=== PATIENT | male | born 1945 | race Caucasian/White ===

== ENCOUNTER 2017-05-10 09:15 | Outpatient (CLI) | payer MEDICARE, OTHER ==
--- NOTE | 2017-05-10 12:33 | CT ---
CT LUMBAR SPINE WITHOUT CONTRAST: Date: 05-10-17 Comparison: None. History: Lumbar spondylosis without myelopathy. 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 Technique: Serial axial CT imaging at 2.5 mm intervals obtained from lower thoracic spine through inf erior aspect of the coccyx without contrast. Coronal and sagittal reformatted imaging obtained. FINDINGS: Concession Supervisor imaging demonstrates significant rotoscoliosis of the mid/lower thoracic spine as well as the l umbar spine. Evaluation for central canal and/or neural foraminal stenosis is limited on routine CT examination. Motion artifact limits assessment of the bilateral kidneys, which are only partially imaged. Of note, the patient underwent a lumbar spine MRI without contrast at [facility] 12-08 which demonstrated a possible mass within the right kidney. This is not fully imaged on this exam . If the patient has not had this lesion surgically resected, dedicated imaging of the abdomen with a nd without contrast using a renal mass protocol. There is no significant anterolisthesis or retrolisthesis seen within the lumbar spine. There is sign ificant dextroscoliosis of the lumbar spine. T12-L1: There is disc space narrowing and vacuum disc formation with anterior osteophyte formation an d mild bilateral facet hypertrophy. No osseous cause of significant central canal or neural foraminal stenosis. L1-2: There is left lateral osteophyte formation. There is bilateral facet hypertrophy. No osseous ca use of significant central canal or neural foraminal stenosis. L2-3: There is left lateral osteophyte formation. There is anterior osteophyte formation and bilatera l facet hypertrophy. There is mild central canal stenosis and mild bilateral neural foraminal stenosi s suspected. L3-4: There is anterior osteophyte formation and prominent bilateral facet hypertrophy with osteophyt e encroachment on the neural foramina and at least moderate bilateral neural foraminal stenosis. Mild /moderate central canal stenosis is suspected as well. L4-5: There is mild disc bulge noted. There is bilateral facet hypertrophy with associated moderate b ilateral neural foraminal stenosis, right greater than left. At least mild central canal stenosis. L5-S1: Bilateral facet hypertrophy with moderate bilateral neural foraminal stenosis suspected, left greater than right. No osseous cause of significant central canal stenosis. There appears to be a remote distal sacral/coccyxgeal fracture. In this region there is a lobulated irregular soft tissue mass lesion extending into the presacral sp herson and abutting the posterior aspect of the rectum. This lobulated soft tissue mass involves the azucena cyx in this location, and measures at least 6.4 cm in transverse dimension and 3.3 cm in AP dimension . It is highly concerning for a neoplastic process, either primary tumor or metastatic disease. No acute fracture is seen. No additional osseous lesion. IMPRESSION: 1. Lobulated soft tissue mass centered in the region of the coccyx which demonstrates significant ext ension into the presacral space and abuts the posterior aspect of the rectum. This is highly suspicio us for a neoplastic process, either primary tumor in this location or metastatic disease/myeloma. 2. Multilevel degenerative change seen within the lumbar spine. 3. Incompletely assessment of bilateral kidneys. Prior imaging demonstrated a lesion of suspicion in the region of the right kidney as described above. Recommend dedicated CT of the abdomen and pelvis w ith and without contrast using a renal mass protocol unless this lesion has been surgically resected since the 12-08-16 study. Code T POS: [facility]
--- NOTE | 2017-05-10 16:37 | NM ---
WHOLE BODY BONE SCAN 05/10/17 HISTORY: Soft tissue mass in the presacral spine noted on prior CT exam. TECHNIQUE: Following the intravenous administration of 32.0 millicuries of technetium 99m labeled MDP, anterior and posterior whole body imaging is obtained as is lateral imaging of the pelvis and lateral imaging of the calvarium. FINDINGS: There is a small focus of increased radiotracer activity involving the lateral aspect of the calvariu m on the left, a nonspecific finding. Recommend CT examination for further assessment. This could rep resent a metastatic lesion in the proper clinical setting. There are degenerative type changes in the region of bilateral AC joints. There is prominent scoliotic curvature of the thoracolumbar spine. There is physiologic activity within the kidneys and urinary bladder. Recent CT demonstrates a lobulated soft tissue mass in the region of the distal coccyx extending into the presacral space. There is no definite evidence of increased radiotracer activity in this region. IMPRESSION: 1. Nonspecific focus of increased radiotracer activity within the calvarium on the left for whic h dedicated cross-sectioning imaging via CT and/or MRI is advised. 2. The soft tissue mass concerning for neoplasia on the 05/10/[address] does not demons trate a scintigraphic correlate on this exam. The CT appearance is concerning for neoplasia. POS: [facility]
== END 2017-05-10 09:16 | disposition home or self-care (01) ==
LOC: CT 09:15
PROVIDERS: ATTEND Surgery
DX: C64.9 Malignant neoplasm of unspecified kidney, except renal pelvis (principal); M47.816 Spondylosis without myelopathy or radiculopathy, lumbar region; M53.3 Sacrococcygeal disorders, not elsewhere classified; Q76.2 Congenital spondylolisthesis
CPT/HCPCS: 72131; 78306; A9503

== ENCOUNTER 2017-05-17 09:46 | Day surgery (SDC) | payer MEDICARE, OTHER ==
[2017-05-16 13:21] VITALS: BMI 40.1
[~2017-05-17 09:46] MED LIST: Gadobenate Dimeglumine 529 MG/1 ML (20ML VIAL) ONE
[2017-05-17] MEDS ORDERED: Midazolam HCl 2 mg/2 ml Vial ONE (10:48)
[2017-05-17] MEDS ORDERED: Fentanyl 100 MCG/2 ML VIAL ONE (10:48)
--- NOTE | 2017-05-17 16:45 | MRI ---
MRI LUMBAR SPINE WITH AND WITHOUT CONTRAST: Date: 05/17/17 Multiplanar, multisequential imaging of lumbar spine obtained. Postcontrast images obtained after adm inistration of 20 mL of MultiHance IV. HISTORY: Lumbar spondylosis without myelopathy. Spondylolisthesis is also listed as a diagnosis. FINDINGS: There is a significant scoliotic curve to the lumbar spine with convexity to the right. This curvatur e is measured at 40 degrees with apex at L1-2. In the sagittal projection, lumbar vertebra maintain height and alignment. Vertebral body signal is n ormally maintained. At T12-L1, there is no disc bulge. Mild facet arthrosis. However, no significant central canal or for aminal stenosis. At L1-2, there is loss of disc space. No significant disc bulge or protrusion. Mild facet arthrosis. No significant central canal or foraminal stenosis. At L2-3, no significant disc bulge or protrusion. Moderate facet hypertrophy. Mild central canal sten osis. At L3-4, broad based disc bulge is present flattening the thecal sac. There is associated facet and l igamentous hypertrophy. These changes result in moderate to severe central canal stenosis. Bilateral foraminal stenosis is present due to the broad based disc bulge and facet hypertrophy. At L4-5, moderate disc bulge is present flattening the thecal sac. Facet hypertrophy. Moderate centra l canal stenosis. Bilateral foraminal stenosis, slightly more severe on the right. At L5-S1, no significant disc bulge. Moderate facet hypertrophy. No significant central canal or fora kayla stenosis identified. IMPRESSION: 1. Scoliotic curvature of the lumbar spine with convexity to the right measured at 40 degrees as not ed above. 2. Moderate to severe central canal stenosis at L3-4 as described above. POS: [facility]
== END 2017-05-17 14:28 | disposition home or self-care (01) ==
LOC: SDC/OP 09:46
PROVIDERS: ATTEND Surgery
DX: M47.816 Spondylosis without myelopathy or radiculopathy, lumbar region (principal); M43.16 Spondylolisthesis, lumbar region; Z88.2 Allergy status to sulfonamides
CPT/HCPCS: 36415; 72158; 82565; 93005; 93010; A9579; J2250; J3010

== ENCOUNTER 2018-05-02 08:30 | Day surgery (SDC) | payer MEDICARE, OTHER ==
[2018-05-01 16:55] VITALS: BMI 38.9
[2018-05-02] MEDS ORDERED: PROPOFOL 200 MG/20 ML VIAL ONE (15:43)
[2018-05-02] MEDS ORDERED: Lidocaine 1% PF 5 ML VIAL ONE (15:43)
--- NOTE | 2018-05-02 16:32 | MRI ---
MRI LUMBAR SPINE WITH AND WITHOUT CONTRAST: Technique: Multiplanar, multisequential imaging of the lumbar spine obtained. Post contrast images we re obtained after administrating IV MultiHance. History: Low back pain. Left side radiation. Lumbar stenosis. History of renal cancer. Comparison: 05-17-17 FINDINGS: Scoliotic curvature of the thoracolumbar spine with convexity to the right again noted measured at 35 -40 degrees, unchanged. The lumbar vertebrae maintain height and posterior alignment in the sagittal view. T12-L1: No significant disc bulge or protrusion. L1-2: No significant disc bulge or protrusion. No significant central canal or foraminal stenosis. L2-3: Mild disc bulge. Facet hypertrophy. Mild central canal stenosis. L3-4: Diffuse disc bulge. Prominent facet and ligamentous hypertrophy. Moderate to severe central can al stenosis again noted at this level. Bilateral foraminal narrowing. L4-5: Broad based bulge with a symmetric extension to the right. Facet hypertrophy. Moderate central canal stenosis. Right foraminal stenosis. L5-S1: No significant disc bulge. Mild facet hypertrophy. No significant central canal or foraminal s tenosis. There is no evidence of vertebral body edema or enhancement. No evidence of vertebral body metastasis identified. The mass density seen involving the coccyx on the CT of 05-10-17 is not imaged on this study. IMPRESSION: Scoliosis of the thoracolumbar spine. Moderate to severe canal stenosis at L3-4 again noted. Lumbar f indings have not significantly changed when compared to 05-17-17. POS: [facility]
== END 2018-05-02 15:30 | disposition home or self-care (01) ==
LOC: SDC/OP 08:30
PROVIDERS: ATTEND Surgery
DX: M48.061 Spinal stenosis, lumbar region without neurogenic claudication (principal); M51.26 Other intervertebral disc displacement, lumbar region; M41.85 Other forms of scoliosis, thoracolumbar region; Z79.82 Long term (current) use of aspirin; Z79.84 Long term (current) use of oral hypoglycemic drugs; Z79.899 Other long term (current) drug therapy; Z88.2 Allergy status to sulfonamides
CPT/HCPCS: 72158; J2001; J2704

== ENCOUNTER 2018-05-04 09:54 | Day surgery (SDC) | payer MEDICARE, OTHER ==
[2018-05-04] MEDS ORDERED: CEFAZOLIN 2 GM/50 ML BAG ONE (10:19)
[2018-05-04] MEDS ORDERED: Thrombin 5000 UNITS/5 ML VIAL ONE (11:32)
[2018-05-04] MEDS ORDERED: Bacitracin Zinc Ointment 30 gm TUBE ONE (11:32)
[2018-05-04] MEDS ORDERED: Sodium Chloride 0.9% 10 ML ONE (11:32)
[2018-05-04] MEDS ORDERED: Fentanyl 250 MCG/5 ML VIAL ONE (11:52)
[2018-05-04] MEDS ORDERED: Promethazine HCl 25 MG/ML VIAL SLOW IVP PRN (13:50)
[2018-05-04] MEDS ORDERED: Promethazine HCl 25 MG/ML VIAL IM PRN ×2 (13:50→14:37)
[2018-05-04] MEDS ORDERED: Ondansetron HCl/PF 4 MG/2 ML Vial IVP PRN (13:50)
[2018-05-04] MEDS ORDERED: Glycopyrrolate 0.2 MG/ML 5 ML SYRINGE ONE (13:52)
[2018-05-04] MEDS ORDERED: PROPOFOL 200 MG/20 ML VIAL ONE (13:52)
[2018-05-04] MEDS ORDERED: PHENYLEPHRINE-NS 100 MCG/ML 10 ML SYRINGE ONE (13:52)
[2018-05-04] MEDS ORDERED: Ondansetron PF 4 MG/2 ML Vial ONE (13:52)
[2018-05-04] MEDS ORDERED: ePHEDrine/0.9% NaCl/PF SYRINGE 50 mg/10 ml ONE (13:52)
[2018-05-04] MEDS ORDERED: SUGAMMADEX SODIUM 500 MG/5 ML VIAL ONE (13:55)
[2018-05-04] MEDS ORDERED: Milk Of Magnesia 30 ML UDCUP PO PRN (14:37)
[2018-05-04] MEDS ORDERED: tiZANidine HCl 4 MG TAB PO PRN (14:37)
[2018-05-04] MEDS ORDERED: Acetaminophen 325 MG TAB PO PRN (14:37)
[2018-05-04] MEDS ORDERED: Fleet Enema 133 ML BOT PR PRN (14:37)
[2018-05-04] MEDS ORDERED: traMADol HCl 50 MG TAB PO PRN (14:37)
[2018-05-04] MEDS ORDERED: Bisacodyl 10 MG SUPP PR PRN (14:37)
[2018-05-04] MEDS ORDERED: Mag-Al 1200 mg/1200 mg/30 ML UDCUP PO PRN (14:37)
[2018-05-04] MEDS ORDERED: Acetaminophen/Codeine 30-300mg Tablet PO PRN (14:37)
[2018-05-04] MEDS ORDERED: Fentanyl 100 MCG/2 ML VIAL ONE ×2 (14:40→15:34)
[2018-05-04] MEDS ORDERED: Loratadine 10 MG TAB PO PRN (14:40)
[2018-05-04] MEDS ORDERED: CEFAZOLIN/Water 2 GM/20 ML SYRINGE SLOW IVP SCH (14:45)
[2018-05-04] MEDS ORDERED: PROVENTIL INHALER 6.7 G (200 INHALATIONS) INH PRN (14:45)
[2018-05-04] MEDS: Sodium Chloride 0.9% 1,000 ML IV SCH (16:38)
[2018-05-04 16:52] VITALS: BMI 39.4
[2018-05-04] MEDS: metFORMIN 500 MG TAB PO SCH (17:29)
[2018-05-04] MEDS: CEFAZOLIN 2 GM/50 ML-DEXTROSE 2 GM in Premix Bag 1 BAG IVPB SCH (17:29)
[2018-05-04] MEDS: HYDROcodone/Acetaminophen 7.5/325 mg Tablet PO PRN (17:46)
[2018-05-04] MEDS ORDERED: Atorvastatin Calcium 10 MG TAB PO SCH (21:00)
[2018-05-04] MEDS ORDERED: Tamsulosin HCl 0.4 MG CAP PO SCH (21:00)
[2018-05-04] MEDS ORDERED: Amlodipine 5 mg/Benazepril 20 mg CAP PO SCH (21:00)
[2018-05-05] MEDS: HYDROcodone/Acetaminophen 7.5/325 mg Tablet PO PRN ×2 (00:04→08:08)
[2018-05-05] MEDS: Cepastat Lozenges 1 LOZ PO PRN ×2 (00:05→02:35)
[2018-05-05] MEDS: CEFAZOLIN 2 GM/50 ML-DEXTROSE 2 GM in Premix Bag 1 BAG IVPB SCH (02:36)
[2018-05-05] MEDS: Sodium Chloride 0.9% 1,000 ML IV SCH ×2 (03:40→08:10)
[2018-05-05] MEDS: metFORMIN 500 MG TAB PO SCH (08:07)
[2018-05-05 08:09] VITALS: TEMP 98.7
--- NOTE | 2018-05-05 10:07 | PRG ---
DATE OF SERVICE: 05/05/2018 SUBJECTIVE: Mr. Muhammad is mobilizing with a rolling walker. He has had urinary retention. We will plan on dismissal with an indwelling [place] catheter.
--- NOTE | 2018-05-05 10:25 | OP ---
DATE OF PROCEDURE: 05/04/2018 OR: OR #[id number]. WOUND TYPE: Type 1 wound. SURGEON: Zeke Aldana M.D. CHORUS DANCER: Alvaro Booth PA-C. PREPROCEDURE DIAGNOSES: L3-L4 stenosis with scoliosis and history of polio. POSTPROCEDURE DIAGNOSES: L3-L4 stenosis with scoliosis and history of polio. PROCEDURE: L3-L4 laminectomy, partial facetectomy, and foraminotomies. DESCRIPTION OF PROCEDURE: After informed consent was obtained from the patient, the patient brought to OR. Proper patient pause and identification was carried out. He was placed under excellent gener al endotracheal anesthesia, positioned prone on the OR table. The L3-L4 segment was marked out dorsa lly. This area was sterilely cleansed, prepared, and draped. Proper patient pause and identificatio n was carried out. The wound was then opened with a combination of sharp, monopolar and blunt dissec tion. The L3, L4 segments were exposed. Localization film confirmed our area of interest. We then performed an L3-L4 laminectomy, partial facetectomy, and foraminotomies with excellent decompression of common dural tube. There was no spinal fluid leak. Copious irrigation occurred. We maximized he mostasis. The wound was closed in anatomic layers following the sprinkling of vancomycin powder. Th e patient then emerged from anesthesia.
[2018-05-05 11:11] VITALS: BP 117/76
== END 2018-05-05 13:45 | disposition home or self-care (01) ==
LOC: SDC 09:54 → SJJU 14:37 → SDC 05-05 13:45
PROVIDERS: ATTEND Surgery
PROC: 01NB0ZZ Release Lumbar Nerve, Open Approach (ICD-10-PCS; principal; 2018-05-04)
DX: M48.061 Spinal stenosis, lumbar region without neurogenic claudication (principal); M54.16 Radiculopathy, lumbar region; M41.9 Scoliosis, unspecified; R33.9 Retention of urine, unspecified; Z86.12 Personal history of poliomyelitis; Z79.1 Long term (current) use of non-steroidal anti-inflammatories (NSAID); Z79.82 Long term (current) use of aspirin; Z79.84 Long term (current) use of oral hypoglycemic drugs; Z79.899 Other long term (current) drug therapy; Z88.2 Allergy status to sulfonamides
CPT/HCPCS: 36416; 76001; J2405; J2704; J3010; J3370; J3490

== ENCOUNTER 2018-12-04 09:48 | Day surgery (SDC) | payer MEDICARE, OTHER ==
[2018-12-01 11:19] VITALS: BMI 40.8
--- NOTE | 2018-12-04 10:48 | RAD ---
CERVICAL SPINE: 4 views INDICATIONS:Cervical pain COMPARISON:None FINDINGS: Cervical vertebra maintain normal height and alignment Mild loss of disc space at all levels. Moderate degenerative osteophytes from all levels. Posterior elements are normally aligned. No evidence of fracture or osseous abnormality. No soft tissue abnormality identified. IMPRESSION: Moderate degenerative changes of cervical spine.
--- NOTE | 2018-12-04 10:50 | RAD ---
EXAM: Lumbar spine: 4 views INDICATIONS: Back pain COMPARISON: Lumbar films 09/07/2016 FINDINGS: Moderate hypertrophic degenerative change at all levels. Scoliotic curvature with convexity to the right is able in appearance. Postlaminectomy changes at L4-5 now noted. Large anterior bridging osteophytes are seen. Mild wedging of the L3 vertebra is stable. IMPRESSION: Scoliotic curvature with moderate to severe degenerative changes and postoperative change s of lumbar spine noted.
[2018-12-04] MEDS ORDERED: PROPOFOL 200 MG/20 ML VIAL ONE (11:34)
[2018-12-04] MEDS ORDERED: Ondansetron PF 4 MG/2 ML Vial ONE (11:34)
--- NOTE | 2018-12-04 14:44 | MRI ---
MRI CERVICAL SPINE WITHOUT CONTRAST: 12/04/18 HISTORY: Neck pain. FINDINGS: The vertebral body heights and narrow signal are maintained. Multilevel disc osteophyte complexes are present with uncovertebral and facet hypertrophic changes. These result in severe left and moderate right neural foraminal stenosis at C3-4, moderate bilateral neural foraminal stenosis at C4-5 and mo derate right and severe left neural foraminal stenosis at C5-6 and C6-7 levels. There is placement of the anterior thecal sac with impingement of the anterior spinal cord at C3-4 and C6-7 levels. The spinal cord demonstrates no evidence of cord edema, syringomyelia or myelomalacia. IMPRESSION: Cervical spondylosis with multilevel stenotic changes as discussed above. POS: [facility]
--- NOTE | 2018-12-04 15:18 | MRI ---
MRI OF THE LUMBAR SPINE WITH AND WITHOUT CONTRAST: 12/04/18 HISTORY: Low back pain. Balance problems. Previous lumbar spine surgery. Bilateral lower extremity pain. COMPARISON: 05/02/18. FINDINGS: Redemonstration of a marked rightward curvature of the lumbar spine with a previously measured angle of approximately 35 degrees. There is appropriate T1 marrow signal intensity of the lumbar vertebrae. Lumbar spine intervertebral body height is maintained. There is no fracture. There is no significant STIR hyperintensity to suggest vertebral body edema or ligamentous injury. There is interval postsur gical changes at the L3-L4 and L4-L% disc spaces. Postoperative scar tissue is noted on the operative site. There is a T2 hyperintense lesion with peripheral enhancement at the operative site measuring 1.1 cm craniocaudal x 1.2 cm anterior posterior x 0.8 cm mediolateral. There does appear to be some p eripheral enhancement with an internal enhancing septation. This abnormal fluid collection is in the midline paraspinal soft tissues and does not exert any mass effect upon the thecal sac. Postcontrast images do no demonstrate any abnormal enhancement with regards to the vertebral bodies. No abnormal enhancement within the thecal sac including the cauda equina and conus medullaris. Appropriate signal intensity of the paraspinal muscles. Appropriate signal intensity of the visualized solid organs. Conus medullaris terminates at the lower aspect of T12. T12-L1: No significant central canal stenosis. Stable bilateral neural foraminal narrowing. L1-L2: Stable intrinsic T1 and T2 hyperintensity of the disc space suggesting calcification. No signi ficant central canal stenosis. Mild bilateral foraminal narrowing. L2-L3: Desiccation without significant loss of disc space height. No significant central canal steno sis. Right neural foramen is patent. Moderate left foraminal narrowing. L3-L4: Desiccation with stable loss of disc space height. Posterior laminectomy defect. Generalized d isc bulge without significant central canal stenosis. Mild right and moderate to severe left foramina l narrowing. The degree of left foraminal stenosis has not significantly changed. L4-L5: Posterior laminectomy defect. Stable disc hydration. No significant central canal stenosis. Mo derate to severe right and moderate left foraminal narrowing, unchanged. L5-S1: Adequate disc hydration. No significant central canal stenosis. Mild bilateral foraminal narro wing. IMPRESSION: 1. Stable scoliosis of the thoracic spine. 2. Stable central canal stenosis throughout the majority of the lumbar spine with exception of l aminectomy defect at the L3-L4 level. At the level of laminectomy, there is no evidence of high grade central canal stenosis. However, there is a peripherally enhancing fluid collection involving the po sterior midline paraspinal muscles/soft tissues which is presumed to be postoperative. A small infect ed fluid collection (abscess) cannot be completely excluded. Correlate clinically. Code T
--- NOTE | 2018-12-04 15:24 | MRI ---
MRI THORACIC SPINE WITHOUT CONTRAST: HISTORY: Pain. Balance problems. COMPARISON: None. FINDINGS: There is evidence of a marked leftward curvature of the thoracic spine, incompletely evaluated on thi s current examination. Visualized mediastinal structures demonstrate dependent atelectatic changes of the lung parenchyma. Visualized upper solid organs are unremarkable. The thoracic aorta has an overall normal size and signal intensity. No T2 hyperintensity in the thor acic cord. No cord atrophy. No cord malacia. Note, the entire thoracic cord is not included on the axial T1 or T2 weighted images. Based on the images provided, there is no evidence of high-grade central canal stenosis. There is so me mass effect upon the posterior right aspect of the thecal sac and the distal thoracic spine. Eval uation of the neural foramina is limited. High-grade foraminal stenosis is difficult to appreciate o n this exam. IMPRESSION: 1. Marked leftward curvature of the thoracic spine. Degree of curvature is difficult to assess on t he current study. 2. Visualized lung parenchyma do demonstrate areas of consolidation. Correlate for atelectasis, pne umonia, or aspiration. 3. No evidence of high-grade central canal stenosis or high-grade foraminal narrowing. Evaluation i s limited by technique. 4. No cord signal abnormality. Note, the entire upper thoracic cord is not included on the axial im ages. POS: [facility]
== END 2018-12-04 15:50 | disposition home or self-care (01) ==
LOC: SDC/OP 09:48
PROVIDERS: ATTEND Physician Assistant Surgical
DX: M48.02 Spinal stenosis, cervical region (principal); M48.061 Spinal stenosis, lumbar region without neurogenic claudication; M48.05 Spinal stenosis, thoracolumbar region; M48.07 Spinal stenosis, lumbosacral region; M47.812 Spondylosis without myelopathy or radiculopathy, cervical region; M47.816 Spondylosis without myelopathy or radiculopathy, lumbar region; M41.9 Scoliosis, unspecified; E11.9 Type 2 diabetes mellitus without complications; Z98.890 Other specified postprocedural states; Z88.2 Allergy status to sulfonamides; Z79.82 Long term (current) use of aspirin; Z79.84 Long term (current) use of oral hypoglycemic drugs; Z79.899 Other long term (current) drug therapy
CPT/HCPCS: 72050; 72100; 72141; 72146; 72158; 82565; J2405; J2704

== ENCOUNTER 2020-03-04 13:18 | Outpatient (CLI) | payer MEDICARE, OTHER ==
--- NOTE | 2020-03-04 13:38 | RAD ---
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 FINDINGS: There is a normal-sized cardiomediastinal silhouette. There appears to be a small left pleural effusi on. There is elevation the left hemidiaphragm. There is scoliotic curvature of the spine with degenerative changes in the spine. IMPRESSION: Small left pleural effusion
== END 2020-03-04 13:19 | disposition home or self-care (01) ==
LOC: BICRAD 13:18
PROVIDERS: ATTEND Urology
DX: C64.1 Malignant neoplasm of right kidney, except renal pelvis (principal); J90 Pleural effusion, not elsewhere classified
CPT/HCPCS: 36415; 71046; 80053; 85025

== ENCOUNTER 2021-05-21 08:18 | Outpatient (CLI) | payer MEDICARE, OTHER ==
[2021-05-21 10:37] LABS: Hemoglobin 11.4 g/dL (13.5-17.5); Mean Corpuscular HGB CONC 32.4 g/dL (32.0-36.0); Mean Corpuscular Hemoglobin 30.5 pg (27.0-33.0); Mean Corpuscular Volume 94.1 fl (81.2-95.1); Mean Platelet Volume 9.4 fl (7.4-10.4); Platelet Count 263 10x3/uL (150-450); RBC Distribution Width 12.6 % (11.5-14.5); Red Blood Cell (RBC) Count 3.74 10x6/uL (4.32-5.72)
[2021-05-21 11:03] LABS: Anion Gap 13 mmol/L (10-20); BUN (Urea Nitrogen) 33 mg/dL (8.4-25.7); Calc. Creatinine Clearance 0 mL/min (70-130); Calcium 9.3 mg/dL (7.8-10.44); Carbon Dioxide 27 mmol/L (23-31); Chloride 107 mmol/L (98-107); Glucose 133 mg/dL (83-110); Potassium 4.5 mmol/L (3.5-5.1); Sodium 142 mmol/L (136-145)
[2021-05-21 17:35] LABS: SARS-CoV-2 PCR by NAA Not Detected (NotDetected)
== END 2021-05-21 08:19 | disposition home or self-care (01) ==
LOC: LABBT 08:18
PROVIDERS: ATTEND Urology
DX: Z01.818 Encounter for other preprocedural examination (principal); N40.1 Benign prostatic hyperplasia with lower urinary tract symptoms; Z20.822 Contact with and (suspected) exposure to COVID-19
CPT/HCPCS: 80048; 85027; U0003; U0005

== ENCOUNTER 2021-05-26 07:25 | Day surgery (SDC) | payer MEDICARE, OTHER ==
[2021-05-22 14:16] VITALS: BMI 40.1
[2021-05-26] MEDS ORDERED: Levofloxacin 500 mg/D5W 100 ml Premix Bag ONE (09:37)
[2021-05-26] MEDS ORDERED: Fentanyl 100 MCG/2 ML VIAL ONE (10:21)
[2021-05-26] MEDS ORDERED: Ondansetron PF 4 MG/2 ML Vial ONE (10:27)
[2021-05-26] MEDS ORDERED: Lidocaine 1% PF 5 ML VIAL ONE (10:27)
[2021-05-26] MEDS ORDERED: Dexamethasone 20 MG/5 ML VIAL ONE (10:27)
[2021-05-26] MEDS ORDERED: PROPOFOL 200 MG/20 ML VIAL ONE (10:27)
[2021-05-26] MEDS ORDERED: Ketorolac Tromethamine 30 MG/ML VIAL ONE (10:59)
[2021-05-26] MEDS ORDERED: Phenazopyridine HCl 100 MG TAB ONE (10:59)
[2021-05-26] MEDS ORDERED: Oxybutynin 5 MG TAB ONE (10:59)
== END 2021-05-26 14:40 | disposition home or self-care (01) ==
LOC: SDC 07:25
PROVIDERS: ATTEND Urology
PROC: 0T7D8DZ Dilation of Urethra with Intraluminal Device, Via Natural or Artificial Opening Endoscopic (ICD-10-PCS; principal; 2021-05-26)
DX: N40.1 Benign prostatic hyperplasia with lower urinary tract symptoms (principal); R33.8 Other retention of urine; R39.14 Feeling of incomplete bladder emptying; R39.15 Urgency of urination; R39.12 Poor urinary stream; R35.0 Frequency of micturition; R35.1 Nocturia; E11.9 Type 2 diabetes mellitus without complications; Z86.12 Personal history of poliomyelitis; Z85.528 Personal history of other malignant neoplasm of kidney; Z79.1 Long term (current) use of non-steroidal anti-inflammatories (NSAID); Z79.82 Long term (current) use of aspirin; Z79.84 Long term (current) use of oral hypoglycemic drugs; Z79.899 Other long term (current) drug therapy; Z88.2 Allergy status to sulfonamides; Z90.5 Acquired absence of kidney
CPT/HCPCS: J1885; J1956; J3010; L8699

== ENCOUNTER 2023-12-01 08:50 | Outpatient (CLI) | payer MEDICARE, OTHER | END 2023-12-01 08:51 | disposition home or self-care (01) | LOC: DTY/OP 08:50 | PROVIDERS: ATTEND Family Medicine | DX: E11.22 Type 2 diabetes mellitus with diabetic chronic kidney disease (principal); N18.30 Chronic kidney disease, stage 3 unspecified; E66.9 Obesity, unspecified | CPT/HCPCS: 97802 ==